=== PATIENT | female | born 1965 | race Caucasian/White ===

== ENCOUNTER 2022-10-12 12:52 | Inpatient (IN) | payer MEDICAID ==
[~2022-10-12] VITALS: Ht 170.2 cm; Wt 77.0 kg
--- NOTE | 2022-10-12 14:33 | NUR ---
Picture taken to sacral wound/stage 4. Dr. rosa at bedside.
--- NOTE | 2022-10-12 14:34 | NUR ---
patient kept on right side,we will monitor.
--- NOTE | 2022-10-12 15:00 | NUR ---
Patient refused to be turned.
[2022-10-12 15:06] LABS: CLARITY,URINE SLIGHTLY CLOUDY (Clear); COLOR,URINE YELLOW (Yellow); GLUCOSE, URINE NEGATIVE (Neg); KETONES,URINE NEGATIVE (Neg); LEUKOCYTE ESTERASE ,URINE MODERATE (Neg); NITRITES, URINE POSITIVE (Neg); OCCULT BLOOD,URINE NEGATIVE (Neg); PROTEIN,URINE NEGATIVE (Neg); UROBILINOGEN,URINE 0.2 E.U/dL (0.2-1.0)
[2022-10-12 15:18] LABS: MEAN CORPUSCULAR VOLUME 94.7 FL (78-98)
[2022-10-12 15:19] LABS: BASOPHILS % (AUTO) 0.4 % (0-1); EOSINOPHILS # (AUTO) 0.5 X10'3 (0-0.9); EOSINOPHILS % (AUTO) 5.8 % (0-6); HEMATOCRIT 28.6 % (35.0-45.0); HEMOGLOBIN 9.2 g/dl (12.0-16.0); LYMPHOCYTES # (AUTO) 2.8 X10'3 (1.1-4.8); LYMPHOCYTES % (AUTO) 32.3 % (21-51); MEAN CORPUSCULAR HEMOGLOBIN 30.3 PG (27.0-31.0); MONOCYTES # (AUTO) 0.9 X10'3 (0-0.9); MONOCYTES % (AUTO) 9.8 % (2-12); NEUTROPHILS # (AUTO) 4.5 X10'3 (1.8-7.7); NEUTROPHILS % (AUTO) 51.7 % (42-75); PLATELET COUNT 530 X10'3 (140-440); RED BLOOD COUNT 3.02 X10'6 (4.20-5.60); WHITE BLOOD COUNT 8.8 X10'3 (4.5-11.0)
[2022-10-12 15:22] LABS: UA COLLECTION TYPE FOLEY CATH
[2022-10-12 15:24] LABS: APTT 27 SECONDS (22-32)
[2022-10-12 15:24] LABS: WBC,URINE 50-100 /HPF (0-4)
[2022-10-12 15:25] LABS: BACTERIA,URINE 4+ /HPF (Neg); MUCUS STRANDS NONE SEEN /LPF (Neg); RBC,URINE NONE SEEN /HPF (0-2); SQUAMOUS EPITHELIAL CELL,UR NONE SEEN /LPF (FEW); WBC CLUMPS,URINE FEW /HPF (NEGATIVE)
[2022-10-12 15:26] LABS: ALANINE AMINOTRANSFERASE 40 U/L (12-78); ALBUMIN 2.7 G/DL (3.4-5.0); ALBUMIN/GLOBULIN RATIO 0.7 (1.1-1.5); ALKALINE PHOSPHATASE 103 IU/L (46-116); ANION GAP 4 (8-16); ASPARTATE AMINO TRANSFERASE 16 U/L (10-37); BILIRUBIN,TOTAL 0.2 MG/DL (0.1-1.0); BLOOD UREA NITROGEN 14 MG/DL (7-18); CALCIUM 9.3 MG/DL (8.5-10.1); CHLORIDE 98 MMOL/L (99-107); CREATININE 0.35 MG/DL (0.40-0.90); GLUCOSE 100 MG/DL (70-104); LIPASE < 50 U/L (73-393); POTASSIUM 4.2 MMOL/L (3.5-5.1); SODIUM 136 MMOL/L (135-145); TOTAL CARBON DIOXIDE 34.4 MMOL/L (24-32); TOTAL PROTEIN 6.8 G/DL (6.4-8.2); eGFR > 90 ML/MIN
--- NOTE | 2022-10-12 16:19 | NUR ---
Requested hospital bed from [facility].
[2022-10-12] MEDS ORDERED: magnesium hydroxide 30ml (MOM) UD suspension PO PRN (16:20)
[2022-10-12] MEDS ORDERED: mag hydrox/Alum hydrox/simeth 30ml oral suspension PO PRN (16:20)
[2022-10-12] MEDS ORDERED: HYDROcodone/acetaminophen 10/325mg tab PO PRN (16:20)
[2022-10-12] MEDS ORDERED: ondansetron/PF 4mg/2ml inj IV PRN (16:20)
[2022-10-12] MEDS ORDERED: HYDROcodone/acetaminophen 5mg/325mg tablet PO PRN (16:20)
[2022-10-12] MEDS ORDERED: morphine 2 MG/ML inj. syringe IV PRN (16:20)
[2022-10-12] MEDS ORDERED: acetaminophen 325mg tablet PO PRN ×2 (16:20)
--- NOTE | 2022-10-12 16:30 | NUR ---
Camargo/pharmacist made aware that patient is being admitted and that she needs med rec done.
--- NOTE | 2022-10-12 16:30 | NUR ---
Requested Jevity 1.2 from dietary.
[2022-10-12] MEDS: dextrose 5%-1/2 normal saline 1,000 ML IV SCH (16:49)
--- NOTE | 2022-10-12 16:49 | NUR ---
Gtube checked for placement, 100ml warm water flush administered.
--- NOTE | 2022-10-12 17:24 | NUR ---
patient turned to right side.
[2022-10-12] MEDS ORDERED: lactose-reduced food/fiber (Jevity 1.2 Cal) 237ml BOTTLE PO SCH (18:00)
--- NOTE | 2022-10-12 18:12 | NUR ---
Gilda LEI requeted to mary beth patient after 15 minutes due to shoft change.
[2022-10-12] MEDS ORDERED: PEG 3350/Na sulf,bicarb,Cl/KCl oral sol 4 liter bottle PO ONE (18:15)
--- NOTE | 2022-10-12 18:25 | NUR ---
called pharmacist to follow up med rec, eric /pharmacist said yesenia is working on it.
[2022-10-12 18:45] VITALS: BP 103/64
[2022-10-12] MEDS ORDERED: LIDO28.35 TOP (19:06)
[2022-10-12] MEDS ORDERED: MAGN24002 PO (19:06)
[2022-10-12] MEDS ORDERED: INSU100I8 SQ (19:06)
[2022-10-12] MEDS ORDERED: LEVO50TA8 PO (19:06)
[2022-10-12] MEDS ORDERED: MELA3TAB70 PO (19:06)
[2022-10-12] MEDS ORDERED: LORA-269 PO (19:06)
[2022-10-12] MEDS ORDERED: GUAI100L37 PO (19:06)
[2022-10-12] MEDS ORDERED: RIVA20TA PO (19:13)
[2022-10-12] MEDS ORDERED: ALBU2.5V12 NEB (19:13)
[2022-10-12] MEDS ORDERED: SODIUM HYPOCHLORITE (19:27)
[2022-10-12] MEDS ORDERED: [UNRECOGNIZED DRUG - OTHER] PO (19:27)
[2022-10-12] MEDS ORDERED: docusate sod 100mg capsule PO SCH (20:00)
[2022-10-12] MEDS: docusate sodium 100mg/10ml UD cup PO SCH (20:00)
[2022-10-12 22:00] VITALS: BP 114/61
[2022-10-13] VITALS (14 sets, daily range): BP systolic 98–144; BP diastolic 53–78
[2022-10-13] MEDS: dextrose 5%-1/2 normal saline 1,000 ML IV SCH ×2 (02:20→12:18)
[2022-10-13 06:02] LABS: ALBUMIN 2.7 G/DL (3.4-5.0); ANION GAP 5 (8-16); BLOOD UREA NITROGEN 8 MG/DL (7-18); BUN/CREATININE RATIO 28.6 (10.0-20.0); CALCIUM 9.4 MG/DL (8.5-10.1); CHLORIDE 102 MMOL/L (99-107); CREATININE 0.28 MG/DL (0.40-0.90); GLUCOSE 118 MG/DL (70-104); POTASSIUM 3.9 MMOL/L (3.5-5.1); SODIUM 141 MMOL/L (135-145); TOTAL CARBON DIOXIDE 34.3 MMOL/L (24-32); eGFR > 90 ML/MIN
[2022-10-13 06:11] LABS: BASOPHILS % (AUTO) 0.4 % (0-1); EOSINOPHILS # (AUTO) 0.3 X10'3 (0-0.9); EOSINOPHILS % (AUTO) 3.9 % (0-6); HEMATOCRIT 28.5 % (35.0-45.0); HEMOGLOBIN 9.5 g/dl (12.0-16.0); LYMPHOCYTES # (AUTO) 2.6 X10'3 (1.1-4.8); LYMPHOCYTES % (AUTO) 29.2 % (21-51); MEAN CORPUSCULAR HEMOGLOBIN 31.6 PG (27.0-31.0); MEAN CORPUSCULAR HGB CONC 33.5 g/dL (33.0-36.5); MEAN CORPUSCULAR VOLUME 94.3 FL (78-98); MONOCYTES # (AUTO) 0.7 X10'3 (0-0.9); MONOCYTES % (AUTO) 8.2 % (2-12); NEUTROPHILS # (AUTO) 5.1 X10'3 (1.8-7.7); NEUTROPHILS % (AUTO) 58.3 % (42-75); PLATELET COUNT 556 X10'3 (140-440); RED BLOOD COUNT 3.02 X10'6 (4.20-5.60); RED CELL DISTRIBUTION WIDTH 15.7 % (11.5-14.5); WHITE BLOOD COUNT 8.8 X10'3 (4.5-11.0)
--- NOTE | 2022-10-13 06:51 | NUR ---
Patient in room PCU 3010. I have received report from Gilda LEI and had the opportunity to ask questions and assume patient care.
[2022-10-13] MEDS: docusate sodium 100mg/10ml UD cup PO SCH (08:00)
[2022-10-13] MEDS: morphine 2 MG/ML inj. syringe IV PRN ×2 (08:06→14:46)
--- NOTE | 2022-10-13 09:51 | NUR ---
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 Fer 10 w/ no WOC consult though stage IV sacral wound per RN note. Pt NPO today pending OR for colostomy placement receiving D5/half NS at 100ml/hr providing 408 kcals/day. Pt pending scaled wt this admit; RD attempted to reach [facility] RD office via TC to obtain pt wt hx though no success. TF recs below using IBW once EN to start post-op; will monitor for scaled wt and EN recs adjustment needs/tolerance this admit. Rec: 1. Once EN to start; Vital AF at 65ml/hr to provide 1560ml volume/day, 1872 kcals, 1265ml water, and 117g protein. 2. Once EN; additional water flush 200ml Q6H 3. Once EN; George packet BID w/ free water flushes for wound healing 4. Once EN, PALB Q / 5. bowel care per physician once post-op 6. scaled wt this admit; subsequent daily wt w/ EN Addendum: 10/13/22 at [address] Amended: Links added.
[2022-10-13] MEDS ORDERED: CefTRIAXone 2gm/D5W 50ml BAG 50 ML IV ONE (10:45)
[2022-10-13] MEDS ORDERED: Melatonin 3mg tablet PO PRN (12:15)
[2022-10-13] MEDS ORDERED: LIDOCAINE 5% OINTMENT 35GM TP PRN (12:15)
[2022-10-13] MEDS ORDERED: albuterol 2.5 MG/3 ML nebule NEB PRN (12:15)
--- NOTE | 2022-10-13 13:14 | NUR ---
PRESSURE ULCER EDUCATION: DEFINITION: A pressure ulcer is an area of skin that breaks down when you stay in one position too long. The constant pressure against the skin reduces the blood flow to that area and the affected tissue dies. CAUSES: "Being bedridden or in a wheelchair "Fragile skin "Having a chronic condition, such as diabetes or vascular disease "Inability to move certain parts of your body without assistance "Older age "Incontinence of urine or stool SYMPTOMS: "A reddened area that DOES NOT turn white when pressed on - this can be the beginning of a pressure ulcer "A blister, deep sore or a crater - these can be advanced pressure ulcers FIRST AID: "Relieve the pressure on this area "Keep the area clean and dry "Call your primary doctor if you see any of the above symptoms "DO NOT massage the area "DO NOT use a donut shaped or ring shaped pillow- these actually interfere with the blood flow and cause complications PREVENTION: "Check for pressure ulcers everyday "Change position at least every two hours to relieve pressure "Use items that help relieve pressure- pillows, sheepskin, foam padding, and powders. "Keep skin clean and dry "Eat healthy well balanced meals "Exercise daily IF YOU SEE ANY OF THESE SYMPTOMS WHILE IN THE HOSPITAL - TELL YOUR NURSE IMMEDIATELY. IF YOU SEE ANY OF THESE SYMPTOMS WHILE AT HOME OR HAVE ANY QUESTIONS OR CONCERNS ABOUT PRESSURE ULCERS - CALL YOUR PRIMARY DOCTOR IMMEDIATELY. Addendum: 10/13/22 at 1314 by Tracie Izaguirre RN Amended: Links added.
--- NOTE | 2022-10-13 17:37 | NUR ---
patient needing to be suctioned at [facility] twice per hour. medicated x2 for pain. Rectal tube and mantilla in place . patient remains on 8 L via trach collar . o2 sats 96%. prepared for surgery .
--- NOTE | 2022-10-13 18:03 | NUR ---
Taken to surgery RT present to change o2 apparatus . patient appears to be in stable condition
--- NOTE | 2022-10-13 18:19 | NUR ---
Problems reprioritized. Patient report given, questions answered & plan of care reviewed with Nicole LEI.
[2022-10-13] MEDS ORDERED: ipratropium/albuterol 3ml nebule NEB ONE (18:35)
[2022-10-13] MEDS ORDERED: LIDOcaine 1% 30ml preserv. free vial ONE (18:55)
[2022-10-13] MEDS ORDERED: BUPIVAcaine/PF 2.5mg/ml (0.25%) 10ml vial ONE (18:56)
[2022-10-13] MEDS ORDERED: midazolam 1 mg/ML 2ml injection IV PRN (19:20)
[2022-10-13] MEDS ORDERED: fentaNYL/PF 50MCG/1 ML 2ML syringe ONE (19:25)
[2022-10-13] MEDS ORDERED: midazolam 1 mg/ML 2ml injection ONE (19:26)
[2022-10-13] MEDS ORDERED: rocuronium 10mg/ml inj IV ONE (19:46)
[2022-10-13] MEDS ORDERED: propofol inj 20 ML IV ONE (19:46)
[2022-10-13] MEDS ORDERED: ceFOXitin 1000 MG inj ONE ×2 (19:46)
[2022-10-13] MEDS ORDERED: ePHEDrine 50MG/ML INJ. ONE (19:59)
[2022-10-13] MEDS ORDERED: INDOCYANINE GREEN 25 MG/10 ML VIAL IV ONE (20:49)
[2022-10-13] MEDS ORDERED: naloxone 0.4 mg/ml inj IV PRN (22:00)
[2022-10-13] MEDS ORDERED: propofol 1000mg/100ml bottle 100 ML IV SCH (22:00)
--- NOTE | 2022-10-13 22:00 | NUR ---
Received from OR via , accompanied by Anesthesiologist and report given by Anesthesiolgist. patient vented with trach rt here, amber started and set as stanby because patient tolerating vent well. v/s wnl, csm intact. 22g lue. rectal tube cdi, peg tube, colostomy cdi pink stoma,lap sites to abdomen cdi dermabonded . dressing to buttocks cdi.f/c draining clear yellow urine.
[2022-10-13] MEDS ORDERED: propofol 1000mg/100ml bottle 100 ML IV ONE (22:03)
--- NOTE | 2022-10-13 22:10 | NUR ---
Patient in room ICU 2045. I have received report from Chase LEI and had the opportunity to ask questions and assume patient care. Patient currently in bed with data recovery planner at bedside. BP currently 101/59, HR in sinus rhythm. BP sleepy, but following commands. Will continue to monitor.
--- NOTE | 2022-10-13 22:30 | NUR ---
patient vented with trach rt here, patient tolerating vent well AND ABLE TO COMMUNICATE NEEDS MOUTHING WORDS. v/s wnl, csm intact. 22g lue. rectal tube cdi, peg tube SITE W/ NO S/S OF COMPLICATIONS, colostomy cdi pink stoma,lap sites to abdomen cdi dermabonded . dressing to buttocks cdi. WOUND CARE CONSULT ORDERED .f/c draining clear yellow urine. PATIENT RECOVERED IN ICU, REPORT GIVEN TO DIRECTOR OF SPECIAL SERVICES WHO HAS TAKEN OVER PATIENT CARE.
[2022-10-13 23:43] LABS: ABG HCO3 30.2 mmol/L (22.0-26.0); ABG OXYGEN SATURATION 99.4 % (94-97); ABG PCO2 (T) 42.2 mmHg (32.0-45.0); ABG PO2 (T) 217.5 mmHg (75.0-100.0); ALLEN'S TEST Modified; FCOHb 0.3 % (0.0-3.9); FMetHb 0.4 % (0.0-1.5); FO2Hb 98.7 % (94-97); PATIENT TEMPERATURE 36.8; PEEP 5 cm H2O; RESPIRATORY RATE 12 b/min; TIDAL VOLUME 550 mL
[2022-10-14] VITALS (35 sets, daily range): BP systolic 73–139; BP diastolic 37–77
[2022-10-14] MEDS: dextrose 5%-1/2 normal saline 1,000 ML IV SCH (01:05)
[2022-10-14] MEDS: heparin, porcine 5000 units/ml vial SQ SCH ×3 (01:06→21:29)
[2022-10-14] MEDS: fentaNYL/PF 50MCG/1 ML 2ML syringe IV PRN ×2 (02:41→04:46)
[2022-10-14 04:31] LABS: ABG BASE EXCESS 6.5 mmol/L (-2.0-2.0); ABG HCO3 30.6 mmol/L (22.0-26.0); ABG OXYGEN SATURATION 96.2 % (94-97); ABG PCO2 (T) 41.8 mmHg (32.0-45.0); ABG PO2 (T) 84.2 mmHg (75.0-100.0); ALLEN'S TEST Modified; FCOHb 0.3 % (0.0-3.9); FMetHb 0.4 % (0.0-1.5); FO2Hb 95.5 % (94-97); RESPIRATORY RATE 12 b/min; TIDAL VOLUME 500 mL; TOTAL HEMOGLOBIN 10.4 G/dl (12.0-16.0)
[2022-10-14 05:50] LABS: BASOPHILS % (AUTO) 0.4 % (0-1); EOSINOPHILS # (AUTO) 0.1 X10'3 (0-0.9); EOSINOPHILS % (AUTO) 0.6 % (0-6); HEMOGLOBIN 8.4 g/dl (12.0-16.0); LYMPHOCYTES # (AUTO) 2.2 X10'3 (1.1-4.8); LYMPHOCYTES % (AUTO) 19.6 % (21-51); MEAN CORPUSCULAR HEMOGLOBIN 30.7 PG (27.0-31.0); MEAN CORPUSCULAR HGB CONC 32.5 g/dL (33.0-36.5); MEAN CORPUSCULAR VOLUME 94.5 FL (78-98); MEAN PLATELET VOLUME 7.1 FL (7.4-10.4); MONOCYTES # (AUTO) 0.7 X10'3 (0-0.9); MONOCYTES % (AUTO) 6.6 % (2-12); NEUTROPHILS % (AUTO) 72.8 % (42-75); PLATELET COUNT 466 X10'3 (140-440); RED BLOOD COUNT 2.75 X10'6 (4.20-5.60); RED CELL DISTRIBUTION WIDTH 15.9 % (11.5-14.5)
[2022-10-14 06:00] LABS: ALBUMIN 2.3 G/DL (3.4-5.0); ANION GAP 7 (8-16); BLOOD UREA NITROGEN 7 MG/DL (7-18); BUN/CREATININE RATIO 17.9 (10.0-20.0); CHLORIDE 99 MMOL/L (99-107); CREATININE 0.39 MG/DL (0.40-0.90); GLUCOSE 121 MG/DL (70-104); POTASSIUM 3.5 MMOL/L (3.5-5.1); SODIUM 138 MMOL/L (135-145); TOTAL CARBON DIOXIDE 32.5 MMOL/L (24-32); TRIGLYCERIDES 67 MG/DL (20-135); eGFR > 90 ML/MIN
--- NOTE | 2022-10-14 06:25 | NUR ---
Problems reprioritized. Patient report given, questions answered & plan of care reviewed with Torrey LEI.
[2022-10-14] MEDS ORDERED: levoTHYROXINE 25mcg tablet PO SCH (07:00)
[2022-10-14] MEDS: morphine 2 MG/ML inj. syringe IV PRN ×3 (07:11→21:27)
--- NOTE | 2022-10-14 09:30 | NUR ---
Pt is in atrial fibrillation with controlled rate in 80's. Normotensive. Pt was previously in sinus rhythm with notched P wave. Dr Josue made aware.
--- NOTE | 2022-10-14 12:20 | NUR ---
TF consult: Noted pt currently receiving Jevity 1.2 at 10 mL/hr. Per RN pt was receiving Jevity 1.2 at 65 mL/hr at [facility]. Pt currently POD #1 s/p partial colectomy with colostomy placement. Per WOC note pt with an unstageable wound to sacrum. Recommend formula change to Vital AF to better meet patient's estimated nutrient needs, d/w RN. Pt would also benefit from George BID to assist with wound healing, to be sent pending physician approval in EMR. Will continue to follow closely. Recommendations: 1. Continuous Vital AF via PEG with 65 mL/hr goal rate to provide 1560 mL volume/day, 1872 kcal, 1265 mL water, and 117 g protein. 2. Additional 180 mL water flush Q6H; monitor serum Na 3. George packet BID with water flushes for wound healing needs 4. Prealbumin q Wednesday/ 5. Bowel care per physician 6. Daily scaled weights Addendum: 10/14/22 at [address] Amended: Links added.
[2022-10-14] MEDS: pantoprazole 40MG/NS 100ML BAG 100 ML IV SCH (12:24)
--- NOTE | 2022-10-14 12:33 | NUR ---
WOC note, patient is POD x1 s/p diverting colostomy for non-healing sacral pressure wound. Ostomy appliance is in place draining serosanguineous effluent. Stoma appears red moist and protruding. Bilateral heels are dry, reddened and blanching. Skin folds and juve area free of moisture or skin breakdown. Sacral pressure ulcer is unstageable at this time due to yellow soft slough covering about 80% of the wound bed. The remainder of the wound bed presents as red moist tissue mixed with yellow slough. Surrounding skin is pink and dry. Cleansed well with normal saline and gauze, dried well and wound care provided. There also appears to be an area of yellow slough to the right anterior forearm, unknown etiology. Cleansed with saline and gauze dressing applied. The remainder of her skin exam was unremarkable. Due to limited mobility, altered nutrition and comorbidities, patient continues to be at high risk for skin breakdown. Patient was left in a position of comfort, heels floated, call light in reach, bed locked and in the lowest position. Reported off to primary nurse.
[2022-10-14] MEDS ORDERED: acetaminophen 325mg/10.15ml oral unit dose solution PEG PRN ×2 (13:02)
[2022-10-14] MEDS ORDERED: HYDROcodone/acetaminophen 7.5MG/325MG per 15ml UD CUP PO PRN (13:04)
[2022-10-14] MEDS ORDERED: mag hydrox/Alum hydrox/simeth 30ml oral suspension PEG PRN (13:05)
[2022-10-14] MEDS ORDERED: HYDROcodone/acetaminophen 7.5MG/325MG per 15ml UD CUP PEG PRN (13:05)
[2022-10-14] MEDS ORDERED: Melatonin 3mg tablet PEG PRN (13:05)
[2022-10-14] MEDS ORDERED: magnesium hydroxide 30ml (MOM) UD suspension PEG PRN (13:05)
[2022-10-14] MEDS ORDERED: levoTHYROXINE 25mcg tablet PEG SCH (13:05)
--- NOTE | 2022-10-14 13:57 | NUR ---
Pt converted back to sinus rhythm.
[2022-10-14] MEDS: HYDROcodone/acetaminophen 7.5MG/325MG per 15ml UD CUP PEG PRN (14:26)
[2022-10-14] MEDS ORDERED: CefTRIAXone/D5W-Rocephin 1gm 50 ML IV ONE (14:55)
--- NOTE | 2022-10-14 16:15 | NUR ---
Pt had 5 bet run of V-Tach, converted back into atrial fibrillation, and became hypotensive 79/43. Placed her back on ventilator on SIMV/ VC rate 12. Called Dr Josue received order for 1 L NS bolus.
[2022-10-14] MEDS ORDERED: normal saline 1000ml 1,000 ML IV ONE ×2 (16:30→17:45)
--- NOTE | 2022-10-14 16:45 | NUR ---
Pt is back in sinus rhythm. BP now 93/41(65) with over half of IV bolus infused. Tachypnea resolved now that she is resting on ventilator.
--- NOTE | 2022-10-14 17:48 | NUR ---
Pt hypotensive following normal saline bolus completion. 84/45 (56). Called Dr Josue received orders for additional 1 L NS bolus, 25% Albubin 400 mL bolus to be followed by 5% Albumin continuous infusion at 100mL/hr, CBC, CMP, LA, ABG, Procalcitonin.
[2022-10-14 18:16] LABS: BASOPHILS % (AUTO) 0.3 % (0-1); EOSINOPHILS # (AUTO) 0.1 X10'3 (0-0.9); EOSINOPHILS % (AUTO) 1.3 % (0-6); HEMOGLOBIN 7.6 g/dl (12.0-16.0); LYMPHOCYTES # (AUTO) 2.6 X10'3 (1.1-4.8); LYMPHOCYTES % (AUTO) 27.2 % (21-51); MEAN CORPUSCULAR HEMOGLOBIN 29.8 PG (27.0-31.0); MEAN CORPUSCULAR HGB CONC 31.5 g/dL (33.0-36.5); MEAN CORPUSCULAR VOLUME 94.5 FL (78-98); MEAN PLATELET VOLUME 6.9 FL (7.4-10.4); MONOCYTES # (AUTO) 0.9 X10'3 (0-0.9); MONOCYTES % (AUTO) 9.2 % (2-12); PLATELET COUNT 434 X10'3 (140-440); RED BLOOD COUNT 2.54 X10'6 (4.20-5.60); RED CELL DISTRIBUTION WIDTH 15.9 % (11.5-14.5); WHITE BLOOD COUNT 9.7 X10'3 (4.5-11.0)
--- NOTE | 2022-10-14 18:30 | NUR ---
Patient in room ICU 2045. I have received report from Torrey LEI and had the opportunity to ask questions and assume patient care.
[2022-10-14 18:32] LABS: ALANINE AMINOTRANSFERASE 25 U/L (12-78); ALBUMIN 2.2 G/DL (3.4-5.0); ALBUMIN/GLOBULIN RATIO 0.6 (1.1-1.5); ALKALINE PHOSPHATASE 78 IU/L (46-116); ANION GAP 8 (8-16); ASPARTATE AMINO TRANSFERASE 18 U/L (10-37); BILIRUBIN,TOTAL 0.3 MG/DL (0.1-1.0); BLOOD UREA NITROGEN 4 MG/DL (7-18); BUN/CREATININE RATIO 11.4 (10.0-20.0); CALCIUM 8.6 MG/DL (8.5-10.1); CHLORIDE 102 MMOL/L (99-107); CREATININE 0.35 MG/DL (0.40-0.90); GLUCOSE 104 MG/DL (70-104); POTASSIUM 3.3 MMOL/L (3.5-5.1); SODIUM 138 MMOL/L (135-145); TOTAL CARBON DIOXIDE 27.8 MMOL/L (24-32); TOTAL PROTEIN 5.6 G/DL (6.4-8.2); eGFR > 90 ML/MIN
--- NOTE | 2022-10-14 18:39 | NUR ---
Problems reprioritized. Patient report given, questions answered & plan of care reviewed with QUIQUE Gonzalez.
[2022-10-14 19:02] LABS: ABG BASE EXCESS 3.9 mmol/L (-2.0-2.0); ABG HCO3 27.6 mmol/L (22.0-26.0); ABG OXYGEN SATURATION 98.7 % (94-97); ABG PCO2 (T) 38.1 mmHg (32.0-45.0); ALLEN'S TEST Modified; FCOHb 0.3 % (0.0-3.9); FMetHb 0.4 % (0.0-1.5); PATIENT TEMPERATURE 37.3; PEEP 5 cm H2O; RESPIRATORY RATE 12 b/min
[2022-10-14] MEDS ORDERED: mineral oil/petrolatum ophthal oint EACHEYE SCH (20:00)
[2022-10-14] MEDS: albumin (Human) 5% 250ml 250 ML IV SCH ×2 (21:00→23:00)
[2022-10-14] MEDS: nystatin 500,000 unit/5ML UD oral suspension PO SCH (21:28)
[2022-10-14] MEDS: cefepime 2g/NS 100ml ADVANTAGE 100 ML IV SCH (21:28)
[2022-10-14] MEDS: albumin (human) 25% 100 ML IV solution IV ONE ×2 (21:30→22:06)
[2022-10-14] MEDS ORDERED: albumin (human) 25% 100 ML IV solution IV ONE (21:50)
[2022-10-14 22:52] LABS: POTASSIUM 3.4 MMOL/L (3.5-5.1)
[2022-10-14] MEDS ORDERED: potassium Cl 20 mEq SR tablet PO PRN ×2 (23:10)
[2022-10-14] MEDS ORDERED: magnesium 2GM in 50ml NS 50 ML IV PRN (23:10)
[2022-10-14] MEDS ORDERED: potassium Cl 40MEQ/270ML bag 270 ML IV PRN (23:10)
[2022-10-14] MEDS ORDERED: magnesium 4gm in 100ml NS 100 ML IV PRN (23:10)
[2022-10-15] VITALS (27 sets, daily range): BP systolic 96–152; BP diastolic 46–80
[2022-10-15] MEDS: albumin (Human) 5% 250ml 250 ML IV SCH ×6 (01:00→09:00)
[2022-10-15] MEDS: HYDROcodone/acetaminophen 7.5MG/325MG per 15ml UD CUP PEG PRN ×3 (01:30→14:18)
[2022-10-15 03:03] LABS: BASOPHILS % (AUTO) 0.1 % (0-1); EOSINOPHILS # (AUTO) 0.1 X10'3 (0-0.9); EOSINOPHILS % (AUTO) 1.6 % (0-6); LYMPHOCYTES % (AUTO) 23.1 % (21-51); MEAN CORPUSCULAR HEMOGLOBIN 31.3 PG (27.0-31.0); MEAN CORPUSCULAR HGB CONC 33.1 g/dL (33.0-36.5); MEAN CORPUSCULAR VOLUME 94.7 FL (78-98); MEAN PLATELET VOLUME 7.1 FL (7.4-10.4); MONOCYTES # (AUTO) 0.7 X10'3 (0-0.9); MONOCYTES % (AUTO) 8.2 % (2-12); NEUTROPHILS # (AUTO) 5.7 X10'3 (1.8-7.7); PLATELET COUNT 369 X10'3 (140-440); RED BLOOD COUNT 2.21 X10'6 (4.20-5.60); RED CELL DISTRIBUTION WIDTH 15.6 % (11.5-14.5); WHITE BLOOD COUNT 8.6 X10'3 (4.5-11.0)
[2022-10-15 03:05] LABS: HEMATOCRIT 20.9 % (35.0-45.0)
[2022-10-15 03:18] LABS: ALBUMIN 3.9 G/DL (3.4-5.0); ANION GAP 7 (8-16); BLOOD UREA NITROGEN 6 MG/DL (7-18); BUN/CREATININE RATIO 16.7 (10.0-20.0); CHLORIDE 104 MMOL/L (99-107); CREATININE 0.36 MG/DL (0.40-0.90); GLUCOSE 119 MG/DL (70-104); MAGNESIUM 1.5 MG/DL (1.5-2.4); POTASSIUM 3.6 MMOL/L (3.5-5.1); PREALBUMIN 14.1 MG/DL (19-36); SODIUM 139 MMOL/L (135-145); TOTAL CARBON DIOXIDE 28.3 MMOL/L (24-32); eGFR > 90 ML/MIN
[2022-10-15 03:23] LABS: ABG BASE EXCESS 2.6 mmol/L (-2.0-2.0); ABG HCO3 27.4 mmol/L (22.0-26.0); ABG OXYGEN SATURATION 97.8 % (94-97); ABG PCO2 (T) 43.4 mmHg (32.0-45.0); ABG PO2 (T) 111.8 mmHg (75.0-100.0); ALLEN'S TEST Modified; FCOHb 0.3 % (0.0-3.9); FMetHb 0.5 % (0.0-1.5); PATIENT TEMPERATURE 37.1; PEEP 5 cm H2O; RESPIRATORY RATE 12 b/min; TIDAL VOLUME 500 mL; TOTAL HEMOGLOBIN 7.9 G/dl (12.0-16.0)
[2022-10-15] MEDS: morphine 2 MG/ML inj. syringe IV PRN ×3 (03:59→11:43)
--- NOTE | 2022-10-15 06:47 | NUR ---
Problems reprioritized. Patient report given, questions answered & plan of care reviewed with Jb LEI.
[2022-10-15] MEDS: nystatin 500,000 unit/5ML UD oral suspension PO SCH ×2 (07:38→12:50)
[2022-10-15] MEDS: pantoprazole 40MG/NS 100ML BAG 100 ML IV SCH (07:38)
[2022-10-15] MEDS: heparin, porcine 5000 units/ml vial SQ SCH (07:38)
[2022-10-15] MEDS: cefepime 2g/NS 100ml ADVANTAGE 100 ML IV SCH (07:38)
[2022-10-15] MEDS ORDERED: CefTRIAXone/D5W-Rocephin 1gm 50 ML IV SCH (08:00)
[2022-10-15] MEDS ORDERED: K and/or MAG REPLACEMENT MC SCH (08:00)
[2022-10-15 09:11] LABS: HEMATOCRIT 26.7 % (35.0-45.0); HEMOGLOBIN 8.7 g/dl (12.0-16.0); MEAN CORPUSCULAR HEMOGLOBIN 30.7 PG (27.0-31.0); MEAN CORPUSCULAR HGB CONC 32.7 g/dL (33.0-36.5); MEAN CORPUSCULAR VOLUME 93.9 FL (78-98); MEAN PLATELET VOLUME 6.9 FL (7.4-10.4); PLATELET COUNT 373 X10'3 (140-440); RED BLOOD COUNT 2.84 X10'6 (4.20-5.60); RED CELL DISTRIBUTION WIDTH 16.5 % (11.5-14.5); WHITE BLOOD COUNT 7.5 X10'3 (4.5-11.0)
--- NOTE | 2022-10-15 12:46 | NUR ---
Per CM notes pt likely transferring back to [facility] today. TC to Lesly MARGARITA with current TF recommendations including recommendation for George BID to assist with wound healing (currently pending physician approval in EMR). All questions answered at this time. [facility] MARGARITA encouraged to reach out for any additional questions. Pt currently tolerating TF very well with little to no GRV. Will continue to follow. Addendum: 10/15/22 at [address] Amended: Links added.
--- NOTE | 2022-10-15 16:50 | NUR ---
Patient to [facility] with [facility]; passy-florin and 3L NC; patient tolerating well. Report called and given to Aayush LEI at [facility].
[2022-10-16 06:33] LABS: HEMOGLOBIN 6.9 g/dl (12.0-16.0)
== END 2022-10-15 16:55 | DRG 710 ==
LOC: ER 12:54 → ED HOLD 16:22 → PCU 3S 18:30 → ICU 2S 10-13 22:18
PROVIDERS: ADMIT Internal Medicine; ATTEND Internal Medicine
PROC: 0D1N4Z4 Bypass Sigmoid Colon to Cutaneous, Percutaneous Endoscopic Approach (ICD-10-PCS; principal; 2022-10-12)
PROC: 5A1945Z Respiratory Ventilation, 24-96 Consecutive Hours (ICD-10-PCS; 2022-10-13)
PROC: 0DBN4ZZ Excision of Sigmoid Colon, Percutaneous Endoscopic Approach (ICD-10-PCS; 2022-10-13)
PROC: B4151ZZ Fluoroscopy of Inferior Mesenteric Artery using Low Osmolar Contrast (ICD-10-PCS; 2022-10-13)
PROC: 8E0W4CZ Robotic Assisted Procedure of Trunk Region, Percutaneous Endoscopic Approach (ICD-10-PCS; 2022-10-13)
PROC: 30233N1 Transfusion of Nonautologous Red Blood Cells into Peripheral Vein, Percutaneous Approach (ICD-10-PCS; 2022-10-15)
DX: A41.9 Sepsis, unspecified organism (principal); J96.21 Acute and chronic respiratory failure with hypoxia; R65.21 Severe sepsis with septic shock; G61.0 Guillain-Barre syndrome; J18.9 Pneumonia, unspecified organism; I95.9 Hypotension, unspecified; G82.20 Paraplegia, unspecified; L89.159 Pressure ulcer of sacral region, unspecified stage; Z93.0 Tracheostomy status; D64.9 Anemia, unspecified; J40 Bronchitis, not specified as acute or chronic; E87.6 Hypokalemia; I25.10 Atherosclerotic heart disease of native coronary artery without angina pectoris; K57.30 Diverticulosis of large intestine without perforation or abscess without bleeding; N39.0 Urinary tract infection, site not specified; R13.10 Dysphagia, unspecified; Z79.01 Long term (current) use of anticoagulants; I25.2 Old myocardial infarction; Z86.718 Personal history of other venous thrombosis and embolism; Z87.891 Personal history of nicotine dependence; Z88.0 Allergy status to penicillin; Z90.49 Acquired absence of other specified parts of digestive tract; Z79.899 Other long term (current) drug therapy; Z79.4 Long term (current) use of insulin
CPT/HCPCS: 36410; 36415; 36430; 36600; 71045; 76937; 80048; 80053; 81001; 82803; 82948; 83605; 83690; 83735; 83880; 84132; 84134; 84145; 84478; 84484; 85018; 85025; 85027; 85610; 85730; 86885; 86900; 86901; 86920; 87040; 87070; 87077; 87081; 87088; 87186; 93005; 94002; 94003; 94640; 94760; 99285; A4215; A4333; A4615; A4618; A4620; A4624; A6209; A6213; A6223; A6250; A6253; A6258; A6402; A6449; C1751; C9113; G0378; J0692; J0694; J0696; J1644; J2250; J2270; J2405; J2704; J3010; J3480; J3490; J7030; J7040; J7050; P9016; P9045; P9047